=== PATIENT | female | born 1990 | race Caucasian/White ===

== ENCOUNTER 2018-05-21 02:55 | Emergency (ER) | payer SELFPAY ==
[~2018-05-21] VITALS: Ht 172.7 cm; Wt 68.0 kg
--- NOTE | 2018-05-21 03:07 | NUR ---
BIB [facility] C/C OVERDOSE. SECONDARY TO ALOC. 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 PT AA/O X 3, DROWSY. NO S/S OF SOB. SKIN'S PINK, WARM, AND, DRY. VSS. NAD. AWAITING MD KULKARNI.
--- NOTE | 2018-05-21 03:20 | NUR ---
PT'S FRIENDS, FIFI AND ESEQUIEL, ARE IN THE LOBBY AND WANT TO SEE THE PT. PT WAS ASKED IF SHE WANTED VISITORS AND SHE STATED THAT SHE DID NOT WANT VISITORS. FIFI AND ESEQUIEL, PT'S FRIENDS, WERE NOTIFIED.
[2018-05-21 03:25] LABS: BASOPHILS % (AUTO) 0.3 % (0.0-2.0); EOSINOPHILS % (AUTO) 1.5 % (0.0-6.0); HEMATOCRIT 37 % (33-45); HEMOGLOBIN 12.5 g/dL (11.5-14.8); LYMPHOCYTES # (AUTO) 2.5 /CMM (0.8-4.8); LYMPHOCYTES % (AUTO) 38.4 % (20.0-44.0); MEAN CORPUSCULAR HEMOGLOBIN 31 PG (26.0-33.0); MEAN CORPUSCULAR HGB CONC 34 g/dl (31.0-36.0); MEAN CORPUSCULAR VOLUME 91 fL (82-100); MONOCYTES # (AUTO) 0.6 /CMM (0.1-1.30); MONOCYTES % (AUTO) 8.7 % (2.0-12.0); NEUTROPHILS # (AUTO) 3.4 /CMM (1.8-8.9); NEUTROPHILS % (AUTO) 51.1 % (43.0-81.0); PLATELET COUNT (AUTO) 152 /CMM (150-450); RDW COEFFICIENT OF VARIATION 13.8 (11.5-15.0); RED BLOOD CELL COUNT(AUTO) 4.09 MIL/uL (4.0-5.2); WHITE BLOOD COUNT (AUTO) 6.6 K/uL (4.3-11.0)
--- NOTE | 2018-05-21 03:30 | NUR ---
PT'S FRIENDS STATED THAT THE PT CONTACTED A MUTUAL FRIEND IN [facility] RE: HER NOTE AND TAKING VALIUM. PT FRIEND IN [place] TEXTED FIFI AND ESEQUIEL WHO WENT TO THE PT'S HOME AND FOUND HER PASSED OUT. 911 WAS CALLED.
[2018-05-21 03:37] LABS: ALBUMIN 3.7 g/dL (3.4-5.0); BILIRUBIN,DIRECT 0.1 mg/dL (0.0-0.2); BILIRUBIN,TOTAL 0.2 mg/dL (0.2-1.0); CALCIUM, SERUM 8.9 mg/dL (8.5-10.1); CREATININE 1.1 mg/dL (0.6-1.3); SALICYLATE 2.3 mg/dL (2.8-20.0)
--- NOTE | 2018-05-21 04:00 | NUR ---
PT FOUND PULLING OUT IV AND ATTEMPTING TO LEAVE. "I AM FINE, I HAVE GONE THROUGH CANCER I DON'T NEED TO BE HERE." NOTIFIED. SAFETY MEASURES REESTABLISHED. CALL LIGHT WITHIN REACH.
--- NOTE | 2018-05-21 04:37 | NUR ---
Patient is resting comfortably in bed with eyes closed. Easily aroused. VSS
--- NOTE | 2018-05-21 05:36 | NUR ---
Patient CONTINUES TO REST comfortably in bed with eyes closed. Easily aroused. VSS. NAD. SAFETY MEASURES IN PLACE. CALL LIGHT WITHIN REACH.
--- NOTE | 2018-05-21 06:34 | NUR ---
CALLED [employer] FOR PSYCH EVAL. STATES "I WILL BE THERE"
--- NOTE | 2018-05-21 07:23 | NUR ---
REPORT GIVEN TO ONCOMING SHIFT MAILE MOSLEY. Addendum: 05/21/18 at 0723 by JC PT STABLE CONDITION. VSS. TORRES.
--- NOTE | 2018-05-21 09:05 | NUR ---
YANDEL BROUSSARD LCSW AT BS FOR EVAL.
[2018-05-21 09:56] VITALS: BP 107/75
--- NOTE | 2018-05-21 09:57 | NUR ---
Patient discharged to home in stable condition. Written and verbal after care instructions given. Patient verbalizes understanding of instruction.
== END 2018-05-21 09:58 | disposition home or self-care (01) ==
LOC: ER 02:57
DX: T42.4X2A Poisoning by benzodiazepines, intentional self-harm, initial encounter (principal); Y92.89 Other specified places as the place of occurrence of the external cause
CPT/HCPCS: 36415; 80048; 80076; 80305; 80329; 84703; 85025; 93005; 99285; A4606; G0480 ×2; Z7610